=== PATIENT | male | born 2000 | race Hispanic/Latino ===

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

== ENCOUNTER 2021-05-20 10:56 | Emergency (ER) | payer OTHER, BC ==
[~2021-05-20] VITALS: Ht 175.3 cm; Wt 90.0 kg
[~2021-05-20 10:56] MED LIST changes: +MULTIVITAMI1 PO; +PREVACID30 M3 PO
[2021-05-20] MEDS ORDERED: OFLOXACIN0.3 % OD (11:56)
[2021-05-20 12:00] VITALS: BP 121/84
== END 2021-05-20 12:00 | disposition home or self-care (01) | DRG 125 ==
LOC: ED 10:56
DX: T15.91XA Foreign body on external eye, part unspecified, right eye, initial encounter (principal); X58.XXXA Exposure to other specified factors, initial encounter; Y93.89 Activity, other specified; Y92.89 Other specified places as the place of occurrence of the external cause; Y99.0 Civilian activity done for income or pay